=== PATIENT | male | born 1985 | race Native Hawaiian/Other Pacific Islander ===

== ENCOUNTER 2016-11-30 01:01 | Emergency (ER) | payer OTHER ==
[2016-11-30 01:15] VITALS: RESP 18
[2016-11-30] MEDS ORDERED: HYDROcodone/APAP 5-325MG 1 EACH TAB PO STA (01:21)
--- NOTE | 2016-11-30 01:43 | ED ---
Lower Extremity Injury HPI - General Chief Complaint: Extremity Injury, Lower Stated Complaint: ankle/foot pain Time Seen by Provider: 11/30/16 01:19 Source: patient, RN notes reviewed Mode of arrival: wheelchair Limitations: no limitations - History of Present Illness Initial Comments: 30-year-old male presents emergency Department chief complaint left foot and ankle pain. Patient states that he jumped off a porch after the skin and states that he felt a pop. Patient states he landed on an incline. Patient states that he's had no prior injuries. Patient states she's been waiting for last 6 hours for the pain improved but hasn't. Patient tried icing no relief. Patient denies any head injury no other musculoskeletal injury. - Related Data Previous Rx's Medication Instructions Recorded Hydrocodone/Acetaminophen [[place] 1 tab PO Q6HR PRN #10 tab 11/30/16 5-325] Ibuprofen [Motrin] 600 mg PO Q8HR PRN #30 tab 11/30/16 Allergies Allergy/AdvReac Type Severity Reaction Status Date / Time No Known Allergies Allergy Verified 11/30/16 01:15 Review of Systems ROS Statement: Those systems with pertinent positive or pertinent negative responses have been documented in the HPI. ROS Other: All systems not noted in ROS Statement are negative. Past Medical History Past Medical History: No Reported History History of Any Multi-Drug Resistant Organisms: None Reported Past Surgical History: No Surgical Hx Reported Past Psychological History: No Psychological Hx Reported Smoking Status: Current every day smoker Past Alcohol Use History: Occasional Past Drug Use History: Marijuana General Exam Limitations: no limitations General appearance: alert, in no apparent distress Respiratory exam: Present: normal lung sounds bilaterally. Absent: respiratory distress, wheezes, rales, rhonchi, stridor Cardiovascular Exam: Present: regular rate, normal rhythm, normal heart sounds. Absent: systolic murmur, diastolic murmur, rubs, gallop, clicks Extremities exam: Present: other (Left foot there is tenderness in the proximal aspect of the dorsal part with mild swelling no ecchymosis neurovascular intact there is mild medial malleolus and lateral malleolus tenderness no laxity noted) Skin exam: Present: warm, dry, intact, normal color. Absent: rash Course Vital Signs 11/30/16 01:11 Temperature 98.6 F Pulse Rate 82 Respiratory 18 Rate Blood Pressure 134/95 O2 Sat by Pulse 98 Oximetry Medical Decision Making - Medical Decision Making 30-year-old male presented for left foot injury. There is no acute fracture per x-ray/radiology reading. Patient we discharged at this time with a left foot sprain. Return parameters were discussed. Disposition Clinical Impression: Sprain of left foot Disposition: HOME SELF-CARE Condition: Stable Instructions: Foot Sprain (ED) Additional Instructions: Please return to the Emergency Department if symptoms worsen or any other concerns. Prescriptions: Hydrocodone/Acetaminophen [[place] 5-325] 1 tab PO Q6HR PRN #10 tab PRN Reason: Pain Ibuprofen [Motrin] 600 mg PO Q8HR PRN #30 tab PRN Reason: Pain Referrals: Malika Mao MD [Primary Care Provider] - 1-2 days Time of Disposition: 02:34
--- NOTE | 2016-11-30 02:32 | XR ---
EXAM: XR Left Ankle Complete, 3 or More Views CLINICAL HISTORY: Reason: Pain/trauma/fall. TECHNIQUE: Frontal, lateral and oblique views of the left ankle. COMPARISON: No relevant prior studies available. FINDINGS: No acute fracture or dislocation. IMPRESSION: No acute fracture or dislocation.
--- NOTE | 2016-11-30 02:33 | XR ---
EXAM: XR Left Foot Complete, 3 or More Views CLINICAL HISTORY: Reason: Pain TECHNIQUE: Frontal, lateral and oblique views of the left foot. COMPARISON: No relevant prior studies available. FINDINGS: Bones/joints: Unremarkable. No acute fracture. No dislocation. Soft tissues: Suspect some soft tissue swelling, example lateral aspect of foot. No radiopaque foreign body. IMPRESSION: Suspected soft tissue swelling. No acute fracture or dislocation.
[2016-11-30 02:46] VITALS: BP 133/79; PULSE 78; TEMP 97
== END 2016-11-30 02:48 | disposition home or self-care (01) ==
LOC: EC 01:01
DX: S93.602A Unspecified sprain of left foot, initial encounter (principal); F17.200 Nicotine dependence, unspecified, uncomplicated; X50.9XXA Other and unspecified overexertion or strenuous movements or postures, initial encounter; Y93.39 Activity, other involving climbing, rappelling and jumping off
CPT/HCPCS: 99283

== ENCOUNTER 2020-08-08 11:04 | Emergency (ER) | payer OTHER ==
[2020-08-08 11:13] VITALS: BP 129/71; PULSE 84; RESP 18; TEMP 98.3
[2020-08-08] MEDS ORDERED: KETOROLAC 15 MG/ML 1 ML VIAL IM STA (11:23)
--- NOTE | 2020-08-08 11:38 | ED ---
Lower Extremity Injury HPI - General Chief Complaint: Extremity Injury, Lower Stated Complaint: Fall/hip/back pain Time Seen by Provider: 08/08/20 11:14 Source: patient, RN notes reviewed Mode of arrival: ambulatory Limitations: no limitations - History of Present Illness Initial Comments: Patient is a 34-year-old male that came to the emergency department complaining of low back/SI joint pain. 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 He noted that he was lifting heavy garbage can and his left foot slipped sideways behind his right foot. He noted that since then he's had moderate pain in both SI joints. He did note that he hasn't lost any strength sensation just that he's been walking a little bit funny since then. He came in today to make sure nothing was broken out of the line. 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 He is muscular go back to work. he denied any paresthesia weakness decreased range of motion and strength chest pain shortness of breath headache nausea vomiting diarrhea constipation. - Related Data Previous Rx's Medication Instructions Recorded Ibuprofen [Motrin] 800 mg PO Q8HR PRN #30 tab 08/08/20 Allergies Allergy/AdvReac Type Severity Reaction Status Date / Time No Known Allergies Allergy Verified 08/08/20 11:47 Review of Systems ROS Statement: Those systems with pertinent positive or pertinent negative responses have been documented in the HPI. ROS Other: All systems not noted in ROS Statement are negative. Past Medical History Past Medical History: No Reported History History of Any Multi-Drug Resistant Organisms: None Reported Past Surgical History: No Surgical Hx Reported Past Psychological History: No Psychological Hx Reported Smoking Status: Current every day smoker Past Alcohol Use History: Occasional Past Drug Use History: Marijuana General Exam Limitations: no limitations General appearance: alert, in no apparent distress Head exam: Present: atraumatic, normocephalic, normal inspection Eye exam: Present: normal appearance, PERRL, EOMI. Absent: scleral icterus, conjunctival injection, periorbital swelling ENT exam: Present: normal exam, mucous membranes moist Respiratory exam: Present: normal lung sounds bilaterally. Absent: respiratory distress, wheezes, rales, rhonchi, stridor Cardiovascular Exam: Present: regular rate, normal rhythm, normal heart sounds. Absent: systolic murmur, diastolic murmur, rubs, gallop, clicks Extremities exam: Present: normal inspection (Well leg raise test positive bilaterally, straight leg test negative bilaterally), full ROM, normal capillary refill. Absent: tenderness, pedal edema, joint swelling, calf tenderness Back exam: Present: normal inspection Neurological exam: Present: alert, oriented X3, CN II-XII intact Psychiatric exam: Present: normal affect, normal mood Skin exam: Present: warm, dry, intact, normal color. Absent: rash Course Vital Signs 08/08/20 11:11 Temperature 98.3 F Pulse Rate 84 Respiratory 18 Rate Blood Pressure 129/71 O2 Sat by Pulse 99 Oximetry Medical Decision Making - Medical Decision Making 34-year-old male complaining of low back pain status post fall 1 week ago. X-rays ordered. Results were unremarkable. Pain medication ordered Case discussed with Dr. Suarez, decided to discharge patient home. - Radiology Data Radiology results: report reviewed, image reviewed No acute fracture dislocation seen of lumbar spine. Normal sacroiliac joints Disposition Clinical Impression: Low back pain, Lumbar muscle pain, Lumbar strain Disposition: HOME SELF-CARE Condition: Stable Instructions (If sedation given, give patient instructions): Low Back Strain (ED), Lower Back Exercises (ED) Additional Instructions: Please return to the Emergency Department if symptoms worsen or any other concerns. Take Motrin as prescribed. Follow-up with primary care in 1-2 days. Is patient prescribed a controlled substance at d/c from ED?: No Referrals: None,Stated [Primary Care Provider] - 1-2 days Time of Disposition: 12:04
--- NOTE | 2020-08-08 11:53 | XR ---
EXAMINATION TYPE: XR lumbar spine 2 or 3V DATE OF EXAM: 08/08/2020 CLINICAL HISTORY: pain TECHNIQUE: Three views of the lumbar spine are submitted. COMPARISON: None. FINDINGS: There are 5 lumbar type vertebral bodies identified. The lumbar spine shows satisfactory alignment w ithout evidence of acute fracture or dislocation. Vertebral body heights are within normal limits. Disc spaces are within normal limits. The overlying soft tissue appears unremarkable. IMPRESSION: No acute fracture or dislocation is seen in the lumbar spine. ICD 10 NO FRACTURE, INITIAL EVALUATION
--- NOTE | 2020-08-08 11:54 | XR ---
Sacroiliac joints HISTORY: Pain, trauma 3 views of the sacroiliac joints Bones are intact. Sacroiliac joints show normal appearance and alignment. No evident erosion or ankyl osis, no sclerosis. Possible osteoarthritic change incidentally noted right hip. IMPRESSION: Normal sacroiliac joints.
== END 2020-08-08 12:09 | disposition home or self-care (01) ==
LOC: EC 11:04
DX: S39.012A Strain of muscle, fascia and tendon of lower back, initial encounter (principal); F17.200 Nicotine dependence, unspecified, uncomplicated; W01.0XXA Fall on same level from slipping, tripping and stumbling without subsequent striking against object, initial encounter; Y93.89 Activity, other specified; Y99.0 Civilian activity done for income or pay
CPT/HCPCS: 72100; 72202; 99283; 96372; J1885

== ENCOUNTER → 2021-07-03 | Outpatient (CLI) | payer OTHER | END | disposition home or self-care (01) | LOC: LABWHC1 11:42 | PROVIDERS: ATTEND Family Medicine | DX: U07.1 COVID-19 (principal) | CPT/HCPCS: U0003; C9803; U0005 ==

== ENCOUNTER 2022-03-21 09:37 | Emergency (ER) | payer OTHER ==
[2022-03-21 09:44] VITALS: RESP 18
[2022-03-21] MEDS ORDERED: diphenhydrAMINE 50 MG CAP PO STA (09:54)
[2022-03-21] MEDS ORDERED: IBUPROFEN 600 MG TAB PO STA (09:55)
--- NOTE | 2022-03-21 10:00 | ED ---
Skin/Abscess/FB HPI - General Chief complaint: Skin/Abscess/Foreign Body Stated complaint: rash on lt arm, lt hand finger injury Time Seen by Provider: 03/21/22 09:48 Source: patient, family, RN notes reviewed, old records reviewed Mode of arrival: ambulatory Limitations: no limitations - History of Present Illness Initial comments: This is a well-appearing 36-year-old male that presents with family complaining of insect bite to his left forearm yesterday that has increased surrounding redness and itching. Patient states that while he is here he also wants us to look at his left middle finger which he slammed in a door last week and continues to be tender. MD complaint: insect bite/sting (left forearm yesterday) -: days(s) (1) Tetanus Up to Date: yes Severity scale (1-10): 2 Quality: aching Worsens with: other (heat) Context: witnessed insect bite Associated symptoms: denies other symptoms Treatments Prior to Arrival: none - Related Data Previous Rx's Medication Instructions Recorded Ibuprofen [Motrin] 800 mg PO Q8HR PRN #30 tab 08/08/20 Allergies Allergy/AdvReac Type Severity Reaction Status Date / Time No Known Allergies Allergy Verified 03/21/22 09:44 Review of Systems ROS Statement: Those systems with pertinent positive or pertinent negative responses have been documented in the HPI. ROS Other: All systems not noted in ROS Statement are negative. Past Medical History Past Medical History: No Reported History History of Any Multi-Drug Resistant Organisms: None Reported Past Surgical History: No Surgical Hx Reported Past Psychological History: No Psychological Hx Reported Smoking Status: Current every day smoker Past Alcohol Use History: Occasional Past Drug Use History: Marijuana General Exam Limitations: no limitations General appearance: alert, in no apparent distress Head exam: Present: atraumatic Eye exam: Present: normal appearance. Absent: scleral icterus, conjunctival injection, periorbital swelling Respiratory exam: Absent: respiratory distress, accessory muscle use Cardiovascular Exam: Present: regular rate Left Forearm Wrist exam: Present: swelling, erythema (Approximate 6 cm x 5 cm area of erythema with wheel noted in center consistent with insect bite) Hand L/R Back: 1 - healing laceration with dried scale and surrounding errythema Neurosensory exam: Present: radial nerve intact, ulnar nerve intact, median nerve intact Vascular: Present: normal capillary refill. Absent: vascular compromise Neurological exam: Present: alert, oriented X3, normal gait Psychiatric exam: Present: normal affect, normal mood Skin exam: Present: warm, dry, normal color Course Vital Signs 03/21/22 03/21/22 09:41 11:22 Temperature 97.4 F L 97.5 F L Pulse Rate 72 68 Respiratory 18 18 Rate Blood Pressure 120/71 118/71 O2 Sat by Pulse 100 100 Oximetry Medical Decision Making - Medical Decision Making Insect bite to left forearm consistent with a histamine response. Patient was given Benadryl. Left middle finger x-ray negative for fractures There is evidence of a healing laceration with dried scale, no signs of infection. Patient was directed to soak in warm soapy water twice a day and cover with bacitracin or Neosporin bandage. He states that he is working with a lot of [employer] at work and was directed to wear gloves until wound is completely healed. Patient's tetanus shot is up-to-date. No fevers. Case discussed with Dr. Suarez. Disposition Clinical Impression: Insect bite, Finger contusion Disposition: HOME SELF-CARE Condition: Good Instructions (If sedation given, give patient instructions): Insect Bite or Sting (ED), Finger Sprain (ED) Additional Instructions: Soak finger in warm soapy water twice a day and cover with bacitracin or Neosporin Band-Aid. You can take Benadryl, Zyrtec or Claritin for the swelling from the insect bite. Cold compresses will help decrease swelling. Return to the emergency room with a newer concerning symptoms. Is patient prescribed a controlled substance at d/c from ED?: No Referrals: Chapo Kilpatrick [Primary Care Provider] - 1-2 days Time of Disposition: 11:00
--- NOTE | 2022-03-21 10:37 | XR ---
EXAMINATION TYPE: XR finger LT DATE OF EXAM: 03/21/2022 Comparison: None Clinical History: 36 year-old male with crushing injury and pain, injury TECHNIQUE: 3 views coned-down left middle finger. FINDINGS: There seems to be some soft tissue injury involving the tip of the middle finger. No underlying acute fracture, subluxation, or dislocation is seen. Impression: Soft tissue injury to the tip of the middle finger. No underlying acute osseous abnormality seen.
[2022-03-21 11:29] VITALS: BP 118/71; PULSE 68; TEMP 97.5
== END 2022-03-21 11:24 | disposition home or self-care (01) ==
LOC: EC 09:37
DX: S50.862A Insect bite (nonvenomous) of left forearm, initial encounter (principal); F17.200 Nicotine dependence, unspecified, uncomplicated; W57.XXXA Bitten or stung by nonvenomous insect and other nonvenomous arthropods, initial encounter
CPT/HCPCS: 99282

== ENCOUNTER 2024-04-05 10:41 | Emergency (ER) | payer OTHER ==
[2024-04-05 10:47] VITALS: RESP 18
--- NOTE | 2024-04-05 11:22 | XR ---
EXAMINATION TYPE: XR shoulder complete RT DATE OF EXAM: 04/05/2024 11:08 AM CLINICAL INDICATION: Male, 38 years old with history of injury; COMPARISON: None TECHNIQUE: XR shoulder complete RT; examined in AP, internally rotated and scapular Y projections. FINDINGS: No evidence of acute osseous pathology, joint dislocation, or soft tissue swelling. The remaining po rtions of the visualized chest are unremarkable. IMPRESSION: No acute osseous pathology. [facility], , 04/05/2024 11:20 AM
--- NOTE | 2024-04-05 11:23 | XR ---
EXAMINATION TYPE: XR clavicle RT DATE OF EXAM: 04/05/2024 11:08 AM CLINICAL INDICATION: Male, 38 years old with history of injury; [facility] COMPARISON: None TECHNIQUE: XR clavicle RT examined in AP and cephalic tilt views . FINDINGS: No evidence of acute or chronic osseous pathology, joint dislocation or soft tissue swelling. IMPRESSION: Normal clavicle. [facility], , 04/05/2024 11:20 AM
[2024-04-05] MEDS: KETOROLAC 15 MG/ML 1 ML VIAL IM STA (11:45)
--- NOTE | 2024-04-05 11:47 | ED ---
Upper Extremity HPI - General Chief Complaint: Extremity Injury, Upper Stated Complaint: Fall-R arm injury Source: patient Mode of arrival: ambulatory Limitations: no limitations - History of Present Illness Initial Comments: This is a 38-year-old male presenting for right shoulder injury/pain (9 out of 10). Patient endorses wrestling and yard when he was picked up and slammed onto his right shoulder also striking the right side of his head. Endorses momentary loss of consciousness with minimal pain at the time. Patient endorses waking this morning with worsened shoulder pain. Patient states pain worsens with movement. States pain is worse near medial aspect of right clavicle. Denies [id number] medication use. Denies visual changes, nausea vomiting, altered mental status, altered LOC. MD Complaint: Injury to:: right, shoulder Onset/Timin -: days(s) Other Extremity Injury: Shoulder: Right Other Injuries: head Place: home Severity scale (1-10): 9 Improves With: immobilization Worsens With: movement of extremity Context: fall - Related Data Previous Rx's Medication Instructions Recorded Ibuprofen [Motrin] 800 mg PO Q8HR PRN #30 tab 08/08/20 Ibuprofen [Motrin] 800 mg PO Q8H #30 tab 04/05/24 Allergies Allergy/AdvReac Type Severity Reaction Status Date / Time No Known Allergies Allergy Verified 04/05/24 10:47 Review of Systems ROS Statement: Those systems with pertinent positive or pertinent negative responses have been documented in the HPI. ROS Other: All systems not noted in ROS Statement are negative. Past Medical History Past Medical History: No Reported History History of Any Multi-Drug Resistant Organisms: None Reported Past Surgical History: No Surgical Hx Reported Past Psychological History: No Psychological Hx Reported Smoking Status: Current every day smoker Past Alcohol Use History: Occasional Past Drug Use History: Marijuana General Exam Limitations: no limitations General appearance: alert, in no apparent distress Head exam: Present: normocephalic, normal inspection, other (Positive contusion with mild ecchymosis noted on right parietal region of scalp. Negative crepitus, hematoma, deformity.) Eye exam: Present: normal appearance, PERRL, EOMI. Absent: scleral icterus, conjunctival injection, periorbital swelling ENT exam: Present: normal exam, mucous membranes moist Neck exam: Present: normal inspection. Absent: tenderness, meningismus, lymphadenopathy Respiratory exam: Present: normal lung sounds bilaterally. Absent: respiratory distress, wheezes, rales, rhonchi, stridor Cardiovascular Exam: Present: regular rate, normal rhythm, normal heart sounds. Absent: systolic murmur, diastolic murmur, rubs, gallop, clicks GI/Abdominal exam: Present: soft, normal bowel sounds. Absent: distended, tenderness, guarding, rebound, rigid Extremities exam: Present: normal inspection, full ROM (Right arm/shoulder: Positive pain with empty can test and liftoff test, strength 5 out of 5. Negative apprehension sign, Snyder sign, belly press.), tenderness (Positive anterior right deltoid/shoulder tenderness. Positive exquisite medial and mid right clavicular tenderness without obvious crepitus or deformity.), normal capillary refill. Absent: pedal edema, joint swelling, calf tenderness Back exam: Present: normal inspection, other (Positive scattered ecchymosis across right scapula. Negative tenderness, crepitus, deformity.) Neurological exam: Present: alert, oriented X3, CN II-XII intact Psychiatric exam: Present: normal affect, normal mood Skin exam: Present: warm, dry, intact, normal color. Absent: rash Course Vital Signs 04/05/24 04/05/24 10:44 12:23 Temperature 97.6 F 98.0 F Pulse Rate 68 74 Respiratory 18 18 Rate Blood Pressure 137/80 130/76 O2 Sat by Pulse 98 98 Oximetry Medical Decision Making - Medical Decision Making Was pt. sent in by a medical professional or institution (, PA, TEST TECH, urgent care, hospital, or [facility]...) When possible be specific @ -No Did you speak to anyone other than the patient for history (EMS, parent, family, police, friend...)? What history was obtained from this source @ -No Did you review nursing and triage notes (agree or disagree)? Why? @ -I reviewed and agree with nursing and triage notes Were old charts reviewed (outside hosp., previous admission, EMS record, old EKG, old radiological studies, urgent care reports/EKG's, [facility] records)? Report findings @ -No old charts were reviewed Differential Diagnosis (chest pain, altered mental status, abdominal pain women, abdominal pain men, vaginal bleeding, weakness, fever, dyspnea, syncope, headache, dizziness, GI bleed, back pain, seizure, CVA, palpatations, mental health, musculoskeletal)? @ -Clavicular fracture, clavicular dislocation, rotator cuff tear, AC dislocation, shoulder dislocation, scapular fracture, subdural hemorrhage, cranial contusion EKG interpreted by me (3pts min.). @ -As above X-rays interpreted by me (1pt min.). @ -Right shoulder and clavicle x-rays revealed no obvious fractures or dislocation. CT interpreted by me (1pt min.). @ -None done U/S interpreted by me (1pt. min.). @ -None done What testing was considered but not performed or refused? (CT, X-rays, U/S, labs)? Why? @ -Patient declined CT brain. States he will return to ER if headache worsens or experiencing new onset dizziness, visual changes, altered mental status, altered LOC. Patient declined Toradol 15 mg IM, endorsing fear of needles. What meds were considered but not given or refused? Why? @ -None Did you discuss the management of the patient with other professionals (professionals i.e. , PA, TEST TECH, lab, RT, psych nurse, 7th grade social studies teacher, accountant clerk, teacher, property and supply officer, case management manager)? Give summary @ -No Was smoking cessation discussed for >3mins.? @ -No Was critical care preformed (if so, how long)? @ -No Were there social determinants of health that impacted care today? How? (Homelessness, low income, unemployed, alcoholism, drug addiction, transportation, low edu. Level, literacy, decrease access to med. care, long term, rehab)? @ -No Was there de-escalation of care discussed even if they declined (Discuss DNR or withdrawal of care, Hospice)? DNR status @ -No What co-morbidities impacted this encounter? (DM, HTN, Smoking, COPD, CAD, Cancer, CVA, ARF, Chemo, Hep., AIDS, mental health diagnosis, sleep apnea, morbid obesity)? @ -None Was patient admitted / discharged? Hospital course, mention meds given and route, prescriptions, significant lab abnormalities, going to OR and other pertinent info. @ -Discharge. Following physical exam and radiograph, patient provided sling for right arm and Motrin 800 mg p.o. Cool compress for both shoulder/Clavicle and right head provided. Motrin p.o. sent to pharmacy for ongoing pain relief. Advised to limit extremity use for next 2 to 4 weeks to allow for healing. Undiagnosed new problem with uncertain prognosis? @ -No Drug Therapy requiring intensive monitoring for toxicity (Heparin, Nitro, Insulin, Cardizem)? @ -No Were any procedures done? @ -No Diagnosis/symptom? @ -Partial tear of right rotator cuff, clavicular contusion, parietal/cranial contusion Acute, or Chronic, or Acute on Chronic? @ -Acute Uncomplicated (without systemic symptoms) or Complicated (systemic symptoms)? @ -Uncomplicated Side effects of treatment? @ -No Exacerbation, Progression, or Severe Exacerbation? @ -No Poses a threat to life or bodily function? How? (Chest pain, [place], MS, pneumonia, PE, COPD, DKA, ARF, appy, cholecystitis, CVA, Diverticulitis, Homicidal, Suicidal, threat to staff... and all critical care pts) @ -No Disposition Clinical Impression: Rotator cuff (capsule) sprain, Strain of shoulder, Contusion of head, Contusion of right clavicular region Disposition: HOME SELF-CARE Condition: Good Instructions (If sedation given, give patient instructions): Rotator Cuff Injury (ED) Prescriptions: Ibuprofen [Motrin] 800 mg PO Q8H #30 tab Is patient prescribed a controlled substance at d/c from ED?: No Referrals: None,Stated [Primary Care Provider] - 1-2 days Time of Disposition: 12:04
[2024-04-05] MEDS: IBUPROFEN 800 MG TAB PO STA (11:59)
[2024-04-05 12:24] VITALS: BP 130/76; PULSE 74; TEMP 98
== END 2024-04-05 12:23 | disposition home or self-care (01) ==
LOC: EC 10:41
DX: W19.XXXA Unspecified fall, initial encounter
CPT/HCPCS: 99283